=== PATIENT | male | born 1985 | race Caucasian/White ===

== ENCOUNTER 2024-01-16 20:29 | Inpatient (IN) | payer BC ==
[2024-01-16 21:59] VITALS: BMI 26.6
[2024-01-16] MEDS ORDERED: ONDANSETRON *ODT* 4 MG TABLET SL PRN (23:23)
[2024-01-16] MEDS ORDERED: BISMUTH SUBSALICYLATE 524 MG/30 ML PO PRN (23:23)
[2024-01-16] MEDS ORDERED: IBUPROFEN 600 MG TABLET (FP) PO PRN (23:23)
[2024-01-16] MEDS ORDERED: POLYETHYLENE GLYCOL (HEALTHYLAX) 3350 17 GM PACKET PO PRN (23:23)
[2024-01-16] MEDS ORDERED: BENZOCAINE/MENTHOL (CHLORASEPTIC ) LOZENGE MM PRN (23:23)
[2024-01-16] MEDS ORDERED: P-EPHED 60MG/TRIPROLIDI 2.5MG TABLET PO PRN (23:23)
[2024-01-16] MEDS ORDERED: DICYCLOMINE HCL 10 MG CAPSULE PO PRN (23:23)
[2024-01-16] MEDS ORDERED: guaiFENesin 600 MG TABLET.ER (FP) PO PRN (23:23)
[2024-01-16] MEDS ORDERED: MAG HYDROX/AL HYDROX/SIMETH 30 ML UNIT-DOSE CUP PO PRN (23:23)
[2024-01-16] MEDS ORDERED: MAGNESIUM HYDROX 2400MG/30ML ORAL SUSPENSION 30 ML CUP PO PRN (23:23)
[2024-01-16] MEDS ORDERED: LOPERAMIDE HCL 2 MG CAPSULE PO PRN (23:23)
[2024-01-16] MEDS ORDERED: BENZONATATE 200 MG CAPSULE PO PRN (23:23)
[2024-01-16] MEDS ORDERED: diazePAM 5 MG TABLET ONE (23:52)
[2024-01-16] MEDS ORDERED: METOPROLOL TARTRATE 25 MG TABLET (FP) ONE (23:54)
[2024-01-16] MEDS: diazePAM 5 MG TABLET PO SCH (23:58)
[2024-01-17] MEDS: METOPROLOL TARTRATE 25 MG TABLET (FP) PO ONE
[2024-01-17] MEDS: IBUPROFEN 400 MG TABLET (FP) PO PRN (01:12)
[2024-01-17] MEDS: METHOCARBAMOL 500 MG TABLET PO PRN (01:12)
[2024-01-17] MEDS: hydrOXYzine PAMOATE 25 MG CAPSULE (FP) PO PRN (01:12)
[2024-01-17] MEDS: PRENATAL VITAMINS W/ FOLIC ACID TABLET (FP) PO SCH (09:47)
[2024-01-17] MEDS: diazePAM 5 MG TABLET PO PRN (09:49)
[2024-01-17 11:28] LABS: CHLORIDE 104 mmol/L (98-107); POTASSIUM 4.6 mmol/L (3.5-5.1); SODIUM 135 mmol/L (136-145)
[2024-01-17 11:30] LABS: CALCIUM 9.6 mg/dL (8.5-10.1)
[2024-01-17 11:32] LABS: ALBUMIN 3.6 g/dl (3.4-5.0); ANION GAP 1 mmol/L (4-13); BLOOD UREA NITROGEN 14.1 mg/dL (7-18); CO2 30 mmol/L (21-32); GLUCOSE,RANDOM 94 mg/dL (74-106)
[2024-01-17 11:35] LABS: CREATININE 0.9 mg/dL (0.55-1.3); SGOT/AST 42 U/L (15-37); SGPT/ALT 81 U/L (13-61)
[2024-01-17 11:37] LABS: BILIRUBIN,TOTAL 0.9 mg/dL (0.2-1); TOT PROT 7.2 g/dl (6.4-8.2)
[2024-01-17 11:38] LABS: ALK PHOS 93 U/L (45-117)
[2024-01-17 11:41] LABS: HEMATOCRIT 39.4 % (35.4-49); HEMOGLOBIN 13.3 GM/dL (11.7-16.9); MCH 29.2 pg (25.7-33.7); MCHC 33.8 g/dl (32.0-35.9); MEAN CELL VOLUME 86.4 fl (80-96); MEAN PLT VOLUME 7.4 fl (7.5-11.1); PLATELET COUNT 330 10^3/uL (134-434); RBC 4.56 M/mm3 (4.00-5.60); RDW 14.2 % (11.9-15.9); WHITE BLOOD COUNT 7.1 K/mm3 (4.0-10.0)
[2024-01-17] MEDS: MELATONIN 5 MG TABLETS PO SCH (22:02)
[2024-01-17] MEDS: THIAMINE 100 MG TABLET PO SCH (22:02)
[2024-01-17] MEDS: MIRTAZAPINE 15 MG TABLET (FP) PO SCH (22:03)
[2024-01-18] MEDS: diazePAM 5 MG TABLET PO SCH (05:26)
[2024-01-18] MEDS: ACETAMINOPHEN 325 MG TABLET (FP) PO PRN (10:20)
[2024-01-19] MEDS: diazePAM 5 MG TABLET PO SCH (06:11)
[2024-01-19 09:28] VITALS: BP 146/98
[2024-01-19 13:04] VITALS: PULSE 105; RESP 16; TEMP 97
[2024-01-20] MEDS ORDERED: diazePAM 5 MG TABLET PO ONE (06:00)
== END 2024-01-19 14:14 | disposition home or self-care (01) | DRG 775 ==
LOC: YASAS 20:29 → Y3N 23:47
PROVIDERS: ADMIT Allergy & Immunology; ATTEND Surgery
PROC: HZ2ZZZZ Detoxification Services for Substance Abuse Treatment (ICD-10-PCS; principal; 2024-01-16)
DX: F10.230 Alcohol dependence with withdrawal, uncomplicated (principal); F43.10 Post-traumatic stress disorder, unspecified; R74.01 Elevation of levels of liver transaminase levels; R00.0 Tachycardia, unspecified; Z62.810 Personal history of physical and sexual abuse in childhood; Z56.0 Unemployment, unspecified; Z59.00 Homelessness unspecified
CPT/HCPCS: 36415; 80053; 80305; 80307; 85027; 86780; 93005; 93010